=== PATIENT | female | born 1945 | race Caucasian/White ===

== ENCOUNTER 2019-04-06 18:31 | Inpatient (IN) ==
--- NOTE | 2019-04-06 18:49 | PROVIDER DOCUMENTATION ---
HPI-General Adult - General Stated Complaint: AMS Time Seen by Provider: 04/06/19 18:37 Source: patient, EMS, custodial records Allergies/Adverse Reactions: Patient Allergies Allergy/AdvReac Type Severity Reaction Status Date / Time No Known Allergies Allergy Verified 09/26/17 09:16 Home Medications: Home Medication List Medication Instructions Recorded Confirmed Last Taken Type Acetaminophen [Tylenol] 2 tab PO Q4H PRN 09/26/17 09/26/17 Unknown History Calcium Carbonate/Vitamin D3 1 each PO QHS 09/26/17 04/06/19 04/05/19 21:00 History [Calcium 600 + Vit D 400 Tablet] Lamotrigine [Lamictal] 25 mg PO QHS 09/26/17 04/06/19 04/05/19 21:00 History Quetiapine [Seroquel] 50 mg PO BID 09/26/17 04/06/19 04/05/19 21:00 History Ranitidine HCl [Zantac] 150 mg PO QAM 09/26/17 04/06/19 04/06/19 06:00 History Sennosides/Docusate Sodium [Senna 1 each PO BID 09/26/17 04/06/19 04/06/19 09:00 History S Tablet] Topiramate [Topamax] 100 mg PO QHS 09/26/17 04/06/19 04/05/19 21:00 History Amlodipine Besylate 5 mg PO DAILY 04/06/19 04/06/19 04/06/19 09:00 History Aripiprazole [Abilify] 2 mg PO QHS 04/06/19 04/06/19 04/05/19 21:00 History Carvedilol 3.125 mg PO BID 04/06/19 04/06/19 04/06/19 09:00 History Cyanocobalamin (Vitamin B-12) 1,000 mcg IJ DIRECTED 04/06/19 04/06/19 04/02/19 09:00 History [Cyanocobalamin Injection] Divalproex [Depakote] 250 mg PO BID 04/06/19 04/06/19 04/06/19 12:00 History Duloxetine [Cymbalta] 30 mg PO QHS 04/06/19 04/06/19 04/05/19 21:00 History Furosemide [Lasix] 20 mg PO DAILY 04/06/19 04/06/19 04/06/19 09:00 History Metformin [Glucophage] 500 mg PO DAILY 04/06/19 04/06/19 04/06/19 09:00 History Mirabegron E.r. [Myrbetriq E.r] 50 mg PO DAILY 04/06/19 04/06/19 04/06/19 09:00 History Mirtazapine 15 mg PO QHS 04/06/19 04/06/19 04/05/19 21:00 History Rosuvastatin Calcium [Crestor] 5 mg PO QHS 04/06/19 04/06/19 04/05/19 21:00 History - History of Present Illness -Gen Adult Nature of Presenting Problems: 73 YOF PRESENTS FROM [facility] FOR AMS, STAFF REPORTS SHE WAS ANGRY AND YELLING. THE PATIENT DENIES COMPLAINTS. SHE IS CONFUSED TO TIME, PLACE AND SITUATION BUT ORIENTED TO PERSON. SHE IS ALERT IN NAD. Location of Pain/Injury: reports: none Pain Radiation: reports: no radiation Quality of Pain: reports: none Severity: reports: moderate Onset/Duration: reports: unsure Timing: reports: still present Context/Activities at Onset: reports: none Modifying Factors: improves with: nothing Associated Symptoms: reports: denies symptoms Review of Systems - Adult - REVIEW OF SYSTEMS - ADULT Constitutional: reports: no symptoms reported. denies: see HPI, chills, fever, fatique, night sweats, weight gain, weight loss, other Eyes: reports: other (BLIND IN R EYE). denies: no symptoms reported, see HPI, discharge, dry eyes, decreased vision, blurred vision, double vision, eye pain, redness Ears, Nose, Mouth & Throat: reports: no symptoms reported. denies: see HPI, ear discharge, ear pain, hearing loss, tinnitus, epistaxis, sinus problem, nose pain, loose teeth, mouth/dental pain, mouth swelling, hoarseness, throat pain, throat swelling, other Cardiovascular: reports: no symptoms reported. denies: see HPI, chest pain, edema, heart murmur, irregular heart rate, orthopnea, palpitations, poor circulation, PND, syncope, other Respiratory: reports: no symptoms reported. denies: see HPI, chronic cough, cough, dyspnea on exertion, excessive sputum production, hemoptysis, pleurisy, shortness of breath, wheezing, other Gastrointestinal: reports: no symptoms reported. denies: see HPI, abdominal pain, hematemesis, constipation, diarrhea, difficulty swallowing, frequent heartburn, nausea, poor appetite, rectal bleeding, vomiting, other Genitourinary: reports: no symptoms reported. denies: see HPI, dysuria, discharge, frequency, flank pain, frequent UTI's, hematuria, hesitency, incontinence, urinary retention, urgency, other Musculoskeletal: reports: no symptoms reported. denies: see HPI, bone pain, back pain, frequent leg cramps, joint pain, joint swelling, muscle aches, muscle weakness, neck pain, other Integumentary: reports: no symptoms reported. denies: see HPI, hives, hair loss, itching, mole changes, nail changes, rash, skin sores/ulcer, skin thickening, other Neurological: reports: see HPI. denies: no symptoms reported, ataxia, dizziness/vertigo, headache/migraines, loss of balance, numbness, paresthesia, seizure, slurred speech, syncope, tremors, other Psychiatric: reports: no symptoms reported. denies: see HPI, anxiety, anti- depressant use, alcohol/drug dependence, depression, emotional problems, insomnia, panic attacks, suicidal thoughts, other Endocrine: reports: no symptoms reported. denies: see HPI, change in skin pigment, excessive sweating, goiter, cold intolerance, heat intolerance, increased hunger, increased thirst, polyuria, other Hematologic/Lymphatic: reports: no symptoms reported. denies: see HPI, blood clots, easy bruising, low blood count, lymphedema, prolonged bleeding, swollen lymph nodes, transfusions, other Allergic/Immunologic: reports: no symptoms reported. denies: see HPI, allergic reactions, allergic rhinitis, asthma, eczema, food allergy, frequent infections, hay fever, hives, positive PPD, urticaria, other Past History - Adult - PAST MEDICAL HISTORY-ADULT Review of Records: reports: Nursing Assessment Review, Social history reviewed & non-contributory. Physical Exam-General - PHYSICAL EXAM-ADULT Initial Vital Signs Reviewed: Yes - CONSTITUTIONAL General Appearance: appears well, alert, no apparent distress - EYES Eyes: pink conjunctivae, other (R EYE CLOUDED, BLINDNESS) - HEAD, EARS, NOSE, MOUTH & THROAT HENMT: normocephalic/atraumatic, moist mucous membranes, other (R EYE HYPERTROPHIED, CLOUDY WITH ZERO VISION) - NECK Neck: non-tender, full range of motion, supple - RESPIRATORY Respiratory: chest non-tender, lungs clear, normal breath sounds, no pleuratic chest pain, no respiratory distress, no accessory muscle use - CARDIOVASCULAR Cardiovascular: normal peripheral pulses, regular rate, rhythm, no edema, no gallop, no JVD, no murmur, JVD - GASTROINTESTINAL (ABDOMEN) Abdominal Exam: normal bowel sounds, non tender, soft - LYMPHATIC Lymphatic: no adenopathy - MUSCULOSKELETAL Back Exam: normal inspection, no CVA tenderness, no vertebral tenderness Extremity: normal range of motion, non-tender, normal gait, normal inspection - SKIN Integumentary: normal color, warm/dry, other (PEELING SKIN ON FACE) - NEUROLOGIC Neurologic: grossly normal. negative: facial droop, focal weakness, sensory deficit - PSYCHIATRIC Psych/Mental Status: normal mood/affect. negative: normal thought content, normal thought process, oriented x 3 Progress - PLAN OF CARE/RESULTS Progress/Plan/Lab Results: Vital Signs - 8 hr 04/06/19 18:37 Temperature 98.1 F Pulse Rate 78 Respiratory Rate 20 Blood Pressure 164/91 O2 Sat by Pulse Oximetry 98 Orders Category Date Time Status Saline Loc NOW Care 04/06/19 18:[address] HEAD W/O CONTRAST [CT] Stat Exams 04/06/19 18:43 Ordered CBC WITH ELECTRONIC DIFF [HEME] Stat Lab 04/06/19 18:41 Uncollected COMPREHENSIVE METABOLIC PANEL [CHEM] Stat Lab 04/06/19 18:42 Uncollected PROTIME WITH INR [COAG] Stat Lab 04/06/19 18:42 Uncollected PTT [COAG] Stat Lab 04/06/19 18:42 Uncollected UA NIMS W/REFLEX CULT [URINALYSIS] Stat Lab 04/06/19 18:42 Uncollected EKG [EKG] Stat Ther 04/06/19 18:42 Ordered Result Diagrams: 04/06/19 19:18 04/06/19 19:18 - CT/MRI 1 CT Study: Head Impression: See EMR Report (EXAM: CT HEAD W/O CONTRAST INDICATION: AMS TECHNIQUE: This exam was performed using automated exposure control, adjustment of mA or kV according to patient size, and/or use of iterative reconstruction technique. COMPARISON: None. FINDINGS: There is mild patchy low attenuation in the periventricular white matter suggesting mild microangiopathy. There is no definite acute infarct given the limited sensitivity of CT versus MRI. There is no discrete intracranial mass, mass effect, or intracranial hemorrhage. The surrounding soft tissues and bony structures are essentially unremarkable. IMPRESSION: Mild chronic appearing changes but no definite acute intracranial pathology by CT. Electronically signed by Shaheen Parham 04/06/2019 7:26 PM 09/23 Interpreting Physician: Shaheen Parham MD Dictated Date/Time: 04/06/191925 cc: Melinda Meyers; Shaheen Peguero III, MD) - CONSULTS/PCP/HOSPITALIST Notification #1 *Consult/PCP/Hospitalist*: DR TRUONG PAGED AT 2019 Departure - Departure Date of Disposition Decision: 04/06/19 Time of Disposition Decision: 20:22 DIAGNOSIS: UTI (urinary tract infection) Disposition: ADMITTED INPATIENT 09 Certified Medical Emergency: Emergent Condition: Stable - Critical Care Note This patient required my direct & personal management of CC.: No Attestation - Physician/ JORGE Attestation Patient care was provided by Advanced Practice Provider:: Yes Advanced Practice Provider:: Melinda Meyers Advanced Practice Provider documentation review:: The Mid-level provider documentation, treatment plan and medical decision making was reviewed by the physician who agrees with all treatment and medical decision making by the [facility]. The physician spent face to face time with patient:: No Advanced Practice Provider documentation review:: Supervising physician onsite and consulted in the evaluation and care of this patient. The physician did not have a face to face encounter with the patient.
[2019-04-06 19:28] LABS: BASO# 0.04 X1000 (0.0-0.2); BASO% 0.5 % (0.0-0.8); EOS# 0.31 X1000 (0.0-0.7); EOS% 3.8 % (0.0-10.0); HEMATOCRIT 38.4 % (37.0-47.0); LYMPH# 2.56 X1000 (1.2-3.4); LYMPH% 31.5 % (20.5-51.1); MCH 27.4 PG (27-31); MCHC 33.9 g/dL (33-37); MCV 80.8 FL (81-99); MONO# 0.63 X1000 (0.11-0.59); MONO% 7.8 % (1.7-9.3); MPV 10.2 FL (7.4-10.4); NEUT# 4.58 X1000 (1.4-6.5); NEUT% 56.4 % (42.2-75.2); PLT 270 X1000 (130-400); RBC 4.75 XMIL (4.2-5.4); RDW 15.5 % (11.5-14.5); WBC 8.12 X1000 (4.8-10.8)
--- NOTE | 2019-04-06 19:29 | Diag Imaging Result Doc PS360 ---
EXAM: CT HEAD W/O CONTRAST INDICATION: AMS TECHNIQUE: This exam was performed using automated exposure control, adjustment of mA or kV according to patient size, and/or use of iterative reconstruction technique. COMPARISON: None. FINDINGS: There is mild patchy low attenuation in the periventricular white matter suggesting mild microangiopathy. There is no definite acute infarct given the limited sensitivity of CT versus MRI. There is no discrete intracranial mass, mass effect, or intracranial hemorrhage. The surrounding soft tissues and bony structures are essentially unremarkable. IMPRESSION: Mild chronic appearing changes but no definite acute intracranial pathology by CT. Electronically signed by Shaheen Parham 04/06/2019 7:26 PM
[2019-04-06 19:35] LABS: INR 1.11; PROTIME 14.4 Seconds (11.0-16.0)
[2019-04-06 19:36] LABS: PTT 48.7 Seconds (22.3-41.8)
[2019-04-06 19:51] LABS: ALB/GLOB RATIO 1.2; CALCIUM 9.6 mg/dL (8.8-10.2); CREATININE 1.8 mg/dL (0.5-0.9); TOTAL BILIRUBIN 0.27 mg/dL (0.20-1.00); TOTAL PROTEIN 7.4 g/dL (6.3-8.3)
[2019-04-06 20:02] LABS: URINE SOURCE CATH
[2019-04-06 20:07] LABS: BILIRUBIN URINE NEGATIVE (NEGATIVE); BLOOD URINE MODERATE (NEGATIVE); CLARITY CLEAR (CLEAR); COLOR YELLOW; GLUCOSE URINE NEGATIVE (NEGATIVE); KETONE URINE TRACE mg/dL (NEGATIVE); LEUKOCYTES URINE MODERATE (NEGATIVE); NITRITE URINE POSITIVE (NEGATIVE); PROTEIN URINE 100 mg/dL (NEGATIVE); SP GRAVITY URINE 1.025; UROBILINOGEN URINE 0.2 EU/dL (0.2-1.0)
[2019-04-06 20:08] LABS: URINE WBC TNTC /HPF (<10)
[2019-04-06 20:10] LABS: URINE BACTERIA 1+ /HFP; URINE EPITHELIAL CELLS <10 /HPF (<10)
[2019-04-06 20:13] LABS: URINE SMALL ROUND CELLS RENAL PRESENT; URINE YEAST PRESENT /HPF
[2019-04-06] MEDS ORDERED: ROCEPHIN 1 GM in NS 50 ML IV ONE (20:15)
[2019-04-06] MEDS ORDERED: ZOFRAN IV PRN (21:52)
[2019-04-06] MEDS ORDERED: TYLENOL PO PRN (21:52)
--- NOTE | 2019-04-06 21:54 | HISTORY AND PHYSICAL ---
PRIMARY CARE PROVIDER: She has none. Shaheen Peguero III I believe. She is a patient of [facility]. REASON FOR ADMISSION: Acute confusion and combativeness today. HISTORY OF PRESENT ILLNESS: Ms. Lolita Jacome 73-year-old woman past medical history of type 2 diabetes, atrial fibrillation, hypertension, epilepsy, depression with psychiatric manifestations. She was brought in today from the detention because she became very aggressive and combative and more confused than usual. She does have a history of underlying dementia per the ER staff. I spoke to the patient. She says she does not know why she is in the hospital but she said that she felt some was messing with her furniture at home and that really upset her. She says now she has to go and get new furniture as result of this. Asked her if she has seen people or voices she denies this. She denies any pain, any fever, any abdominal discomfort or GI or complaints. REVIEW OF SYSTEM: Was totally normal. ALLERGIES: No known allergies. MEDICATIONS: Have not been reconciled. SURGICAL HISTORY: Has had a hysterectomy, cholecystectomy per the patient. FAMILY HISTORY: Patient denies any heart disease or diabetes. SOCIAL HISTORY: Does not smoke, drink, or use drugs. Currently lives in a detention. LAB WORK: White count 8000, hemoglobin and hematocrit 13 and 38, platelets 270,000 with normal differential. Sodium 135, BUN 21, creatinine 1.8. No baseline to compare, alkaline phosphatase 126, PT 14, INR 1.1, PTT 48.7. Urinalysis moderate blood, positive nitrate, too numerous to count WBC and 1+ bacteria with urine yeast. Head CT mild chronic appearing changes but no acute intracranial abnormalities noted. PHYSICAL EXAMINATION: Elderly woman who is not in acute distress. The blood pressure is 160/91, heart rate 78, respiratory rate 20, temperature is 98.1. Patient is alert and surprisingly oriented to person, place and time with normal mood and affect. Head is normocephalic, atraumatic. Eyes, left pupil is reactive to light, pupil and iris are completely opacified following head trauma many decades ago but EOMI. Is anicteric and not pale. ENT exam grossly normal. NECK: Short and thick. No JVD or carotid bruit, thyromegaly. CHEST: Clear when auscultated in both lung gordon. CARDIOVASCULAR: First, 2nd sounds heard. No gallops, murmurs, rub, rhythm is regular. ABDOMEN: Protuberant, soft, not tender. No mass, megaly, bowel sounds are normal. RECTAL: Deferred at this time. EXTREMITIES: Patient has good distal pulse, volume is regular, symmetrical. No edema, clubbing, cyanosis. NEURO: No focal deficits . SKIN: Patient has diffuse and xerosis of her skin otherwise good turgor, no overt breakdown lesions or erythema. MUSCULOSKELETAL: Grossly normal. ASSESSMENT: 1. At this time is acute kidney injury. 2. Urinary tract infection. 3. Dementia. 4. Mild encephalopathy secondary urinary tract infection and possible acute kidney injury . 5. Hypertension. 6. Epilepsy. 7. Clinical depression with behavioral manifestations. PLAN: Hydrate patient, treat patient empirically Rocephin pending urine cultures. I do not have the patient's active medication list is possible that her medications may or may not be playing a role in this acute confusion state. Only time will tell with appropriate hydration and treatment with the antibiotics will retrospectively be able to ascertain if her symptoms are due to hydration and infectious problems versus medications. Informed patient that she will be spending 2 days and she was not very happy about that. Avoid nephrotoxic medications. cc: Maurilio Fleming MD
[2019-04-06] MEDS: NS 1,000 ML IV SCH (22:16)
[2019-04-06] MEDS: LOVENOX SUBQ SCH (22:18)
[2019-04-07] MEDS: NS 1,000 ML IV SCH (05:10)
--- NOTE | 2019-04-07 06:58 | EKG Report ---
Test Performed on : 04/07/2019 05:35:20 AM Test Reason : Acute kidney injury Blood Pressure : / mmHG Vent. Rate : 076 BPM Atrial Rate : 076 BPM P-R Int : 244 ms QRS Dur : 120 ms QT Int : 418 ms P-R-T Axes : 074 -14 065 degrees QTc Int : 470 ms Undetermined rhythm (probably atrial fibrillation) with PVCs or aberrant conduction Nonspecific intraventricular conduction delay Nonspecific ST and T wave abnormality Abnormal ECG Confirmed by Chris LOBATO, Salvador Monahan ([id number]) on 04/08/2019 8:17:59 AM
[2019-04-07 07:37] LABS: BASO# 0.05 X1000 (0.0-0.2); BASO% 0.7 % (0.0-0.8); EOS# 0.35 X1000 (0.0-0.7); EOS% 4.9 % (0.0-10.0); HEMATOCRIT 34.8 % (37.0-47.0); HEMOGLOBIN 11.6 g/dL (12.0-16.0); IMM GRAN# 0.02 X1000 (0.0-0.04); IMM GRAN% 0.3 % (0.0-0.5); LYMPH# 2.78 X1000 (1.2-3.4); MCHC 33.3 g/dL (33-37); MCV 81.1 FL (81-99); MONO% 8.4 % (1.7-9.3); MPV 10.5 FL (7.4-10.4); NEUT# 3.32 X1000 (1.4-6.5); NEUT% 46.7 % (42.2-75.2); PLT 215 X1000 (130-400); RBC 4.29 XMIL (4.2-5.4); RDW 15.2 % (11.5-14.5); WBC 7.12 X1000 (4.8-10.8)
[2019-04-07 08:03] LABS: CALCIUM 8.6 mg/dL (8.8-10.2); CREATININE 1.5 mg/dL (0.5-0.9); MAGNESIUM 1.9 mg/dL (1.5-2.7); POTASSIUM 3.1 mmol/L (3.5-5.1)
[2019-04-07] MEDS: KLOR-CON PO ONE ×2 (10:13→10:14)
[2019-04-07] MEDS: NS + KCL 20 MEQ 1,000 ML IV SCH ×2 (10:59→21:13)
--- NOTE | 2019-04-07 14:43 | PROGRESS NOTE ---
DATE: 04/07/2019 SUBJECTIVE: This patient is lying in bed. Apparently she has been agitated and combative on and off, but at the moment of her physical exam she was basically sleeping. I woke her up. She was able to say her name and follow commands, but she was really sleepy. OBJECTIVE: Vital Signs: Temperature 98.4, pulse 67, respiratory rate 16, blood pressure 166/65, oxygen saturation 99% on room air. HEENT: Head normocephalic, no trauma. PERRLA. Neck: Supple. No JVD. No masses. Central trachea. Chest: Clear to auscultation. No wheezing. No rales. Abdomen: Soft. Nontender. Nondistended. No hepatosplenomegaly. Some discomfort at the level of the suprapubic area. Extremities: No edema, no clubbing, no cyanosis. Neurological examination: This patient does not have any motor deficits. She is sleepy at this moment. She was able to say her name. Apparently she has been confused and combative on and off. LABORATORY: WBC 7.1, hemoglobin 11.6, hematocrit 24.8, platelets 215,000. Sodium 136, potassium 3.1, chloride 102, bicarbonate 22, BUN 17, creatinine 1.5, glucose 90, calcium 8.6, magnesium 1.9. ASSESSMENT AND PLAN: 1. Encephalopathy in a patient with possible dementia, probably infectious encephalopathy. She does have a urinary tract infection. I will continue with same management, she is on antibiotics. Urine culture showed gram-negative rods. 2. Possible acute kidney injury. I am not quite sure about her baseline. Her creatinine upon admission was 1.8 and now 1.5. I do not know if this is new or chronic. I do not have any previous records. 3. Urinary tract infection. As per #1. Continue with ceftriaxone. 4. Dementia. Aware. I will continue with some of her home medications. 5. Clinical depression with behavioral manifestations. I will continue with some of her home medications. I am not quite sure this confusion is also related to too much medications on board. 6. History of epilepsy. Aware. 7. Hypertension, stable. 8. Diabetes, stable. cc: Adrián Madrid MD
[2019-04-07] MEDS: ROCEPHIN 1 GM in NS 50 ML IV SCH (21:13)
[2019-04-07] MEDS: CALTRATE 600 + D PO SCH (21:14)
[2019-04-07] MEDS: PERICOLACE PO SCH (21:14)
[2019-04-07] MEDS: LAMICTAL PO SCH (21:14)
[2019-04-07] MEDS: LOVENOX SUBQ SCH (21:14)
[2019-04-07] MEDS: DEPAKOTE PO SCH (21:14)
[2019-04-07] MEDS: SEROQUEL PO SCH (21:30)
[2019-04-08] MEDS: NS + KCL 20 MEQ 1,000 ML IV SCH ×2 (06:26→16:41)
[2019-04-08 07:56] LABS: CALCIUM 8.6 mg/dL (8.8-10.2); CREATININE 1.3 mg/dL (0.5-0.9); MAGNESIUM 1.8 mg/dL (1.5-2.7); POTASSIUM 4.1 mmol/L (3.5-5.1)
[2019-04-08] MEDS ORDERED: APRESOLINE IV PRN (09:09)
--- NOTE | 2019-04-08 10:57 | PROGRESS NOTE ---
DATE: 04/08/2019 SUBJECTIVE: This patient is lying comfortably in bed. She has been refusing treatment. She has been combative on and off, I will request physical therapy. I will continue with the same management for now. We have a positive urine culture that showed gram-negative rods. Kidney function getting better. Initially, the creatinine was 1.8, now 1.5 and 1.3. ASSESSMENT AND PLAN: 1. Encephalopathy in a patient with possible dementia, likely infectious encephalopathy. She does have urinary tract infection. Urine culture showed gram-negative rods. Continue with same management. She is on antibiotics. 2. Kidney injury, I am not quite sure about her baseline. It looks like an acute issue. She was admitted with a creatinine 1.8, yesterday was 1.5, and today is 1.3. BUN trending down also. We will continue with the same management. 3. Hypokalemia resolved. 4. Urinary tract infection as per #1. 5. Dementia aware. I will continue with her home medications, but she has been refusing them. 6. Clinical depression with behavioral manifestation. Continue home medications, but she has been refusing those. I believe once she is less confused, she will start taking it. 7. History of epilepsy aware. 8. Hypertension stable. 9. Diabetes, stable. cc: Adrián Madrid MD
[2019-04-08] MEDS: COREG PO SCH (20:00)
[2019-04-08] MEDS: ROCEPHIN 1 GM in NS 50 ML IV SCH (20:00)
[2019-04-08] MEDS: DEPAKOTE PO SCH (20:01)
[2019-04-08] MEDS: PERICOLACE PO SCH (20:01)
[2019-04-08] MEDS: ZANTAC PO SCH (20:01)
[2019-04-08] MEDS: SEROQUEL PO SCH (20:01)
[2019-04-08] MEDS: NORVASC PO SCH (20:02)
[2019-04-09] MEDS: SEROQUEL PO SCH ×3 (00:05→19:56)
[2019-04-09] MEDS: COREG PO SCH ×3 (00:06→19:56)
[2019-04-09] MEDS: LAMICTAL PO SCH ×2 (00:06→19:56)
[2019-04-09] MEDS: ABILIFY PO SCH ×2 (00:06→19:57)
[2019-04-09] MEDS: REMERON PO SCH ×2 (00:06→19:56)
[2019-04-09] MEDS: CALTRATE 600 + D PO SCH ×2 (00:07→19:56)
[2019-04-09] MEDS: CYMBALTA PO SCH ×2 (05:51→19:56)
[2019-04-09] MEDS: LOVENOX SUBQ SCH (05:52)
[2019-04-09] MEDS: PERICOLACE PO SCH ×3 (05:52→19:56)
[2019-04-09] MEDS: NS + KCL 20 MEQ 1,000 ML IV SCH ×3 (07:15→18:28)
[2019-04-09 08:05] LABS: BASO# 0.03 X1000 (0.0-0.2); BASO% 0.5 % (0.0-0.8); EOS# 0.37 X1000 (0.0-0.7); EOS% 6.1 % (0.0-10.0); HEMATOCRIT 33.7 % (37.0-47.0); LYMPH# 2.01 X1000 (1.2-3.4); LYMPH% 33.2 % (20.5-51.1); MCHC 32.6 g/dL (33-37); MCV 82.6 FL (81-99); MONO# 0.56 X1000 (0.11-0.59); MONO% 9.3 % (1.7-9.3); MPV 9.9 FL (7.4-10.4); NEUT# 3.08 X1000 (1.4-6.5); NEUT% 50.9 % (42.2-75.2); PLT 186 X1000 (130-400); RBC 4.08 XMIL (4.2-5.4); RDW 15.6 % (11.5-14.5); WBC 6.05 X1000 (4.8-10.8)
[2019-04-09 08:22] LABS: CALCIUM 8.6 mg/dL (8.8-10.2); CREATININE 1.3 mg/dL (0.5-0.9); POTASSIUM 3.9 mmol/L (3.5-5.1)
[2019-04-09] MEDS: MYRBETRIQ E.R. PO SCH (09:49)
[2019-04-09] MEDS: NORVASC PO SCH (09:49)
[2019-04-09] MEDS: DEPAKOTE PO SCH ×2 (09:49→14:47)
[2019-04-09] MEDS: ZANTAC PO SCH (09:49)
--- NOTE | 2019-04-09 14:40 | Diag Imaging Result Doc PS360 ---
EXAM: BA SWALLOW W/VIDEO SPEECH THER 04/09/2019 HISTORY: dysphagia TECHNIQUE: Modified barium swallow, 163 images, one three mGy, 31 seconds fluoroscopy time. COMMENT: There is no evidence of aspiration. There is some cricopharyngeal achalasia. This is seen with liquid barium primarily. IMPRESSION: Mild cricopharyngeal achalasia. Electronically signed by Hawk Tillman 04/09/2019 2:38 PM
--- NOTE | 2019-04-09 18:25 | PROGRESS NOTE ---
DATE: 04/09/2019 SUBJECTIVE: The patient is resting comfortably in bed. She has been refusing treatment but today she started taking it back again. She has been combative on and off. Physical therapy has been requested. I will continue with same management. We have a positive culture that showed gram- negative rods in the urine. She has been placed on antibiotics. OBJECTIVE: Vital Signs: Temperature 97.6 degrees, pulse 70, respiratory rate 18, blood pressure 150/66, oxygen saturation 98 on room air. HEENT: Head normocephalic. No trauma. She has a lesion on the right eye which is chronic. PERRLA on the left. Neck: Supple. No JVD. Central trachea. Chest: Clear to auscultation. No wheezing. No rales. Abdomen: Soft, nontender, nondistended. No hepatosplenomegaly. Extremities: No edema. No clubbing. No cyanosis. Neurological: The patient is alert. She is oriented x1. She is able to say her date of . She is not oriented to place or date. LABORATORY: WBC 6, hemoglobin 11, hematocrit 37.7, platelet 186,000. Sodium 138, potassium 3.9, chloride 107, bicarbonate 21, BUN 9, creatinine 1.3, glucose 86, calcium 8.6. ASSESSMENT AND PLAN: 1. Encephalopathy in a patient with possible dementia, likely infectious encephalopathy. She does have an urinary tract infection. Urine culture showed gram-negative rods. Continue with the same management. She is on antibiotics. 2. Kidney injury. That could be acute on chronic but I do not have any previous results. Her creatinine has been stable compared with yesterday at 1.3. Upon admission it was 1.8. 3. Hypokalemia, resolved. 4. Urinary tract infection. As per #1, we have a positive urine culture that showed gram- negative rods. Continue with ceftriaxone. 5. Dementia. Aware. Continue home medication. 6. Clinical depression with behavioral manifestation which is probably chronic. She does not look depressed for me today nor yesterday. I believe she is less confused, but she is not oriented to time or place. I believe this is probably her baseline. 7. History of epilepsy. Aware. 8. Hypertension, stable. 9. Diabetes, stable. 10. There is some concern for dysphagia. I have requested a modified barium swallow to rule it out. The correction communicated with the nurse a couple days ago and they are concerned about this issue. We will try to rule this out. 11. This patient has been refusing treatment but today she started eating a little bit more and she took her morning medications. We will continue to monitor. I believe she is left confused but likely she has dementia. cc: Adrián Madrid MD
[2019-04-09] MEDS: ROCEPHIN 1 GM in NS 50 ML IV SCH (19:57)
[2019-04-10] MEDS: CALTRATE 600 + D PO SCH ×2 (01:25→20:07)
[2019-04-10] MEDS: ABILIFY PO SCH ×2 (01:25→20:07)
[2019-04-10] MEDS: CYMBALTA PO SCH ×2 (01:26→20:07)
[2019-04-10] MEDS: REMERON PO SCH ×2 (01:26→20:07)
[2019-04-10] MEDS: LAMICTAL PO SCH ×2 (01:26→20:07)
[2019-04-10] MEDS: PERICOLACE PO SCH ×3 (01:26→20:07)
[2019-04-10] MEDS: COREG PO SCH ×3 (01:26→20:07)
[2019-04-10] MEDS: SEROQUEL PO SCH ×3 (01:27→20:07)
[2019-04-10] MEDS: LOVENOX SUBQ SCH ×2 (01:27→22:18)
[2019-04-10] MEDS: NS + KCL 20 MEQ 1,000 ML IV SCH ×2 (04:17→20:23)
[2019-04-10 08:24] LABS: CALCIUM 8.8 mg/dL (8.8-10.2); CREATININE 1.1 mg/dL (0.5-0.9); POTASSIUM 4.3 mmol/L (3.5-5.1)
[2019-04-10] MEDS: NORVASC PO SCH ×2 (08:51→20:07)
[2019-04-10] MEDS: DEPAKOTE PO SCH ×2 (08:51→15:22)
[2019-04-10] MEDS: MYRBETRIQ E.R. PO SCH (08:52)
[2019-04-10] MEDS: ZANTAC PO SCH (08:53)
--- NOTE | 2019-04-10 09:33 | Diag Imaging Result Doc PS360 ---
CHEST-1 VIEW - 04/10/2019 INDICATION: pneumonia COMPARISON: None FINDINGS: The right hemidiaphragm is somewhat elevated. The lungs are clear. Heart size is normal. No pneumothorax or pleural effusion. IMPRESSION: Negative exam. Electronically signed by Antoine Joseph 04/10/2019 9:31 AM
[2019-04-10] MEDS: INVANZ 1 GM/NS 1 GM/50 ML IVPB IV SCH (10:03)
--- NOTE | 2019-04-10 12:28 | PROGRESS NOTE ---
DATE: 04/10/2019 SUBJECTIVE: The patient is resting comfortably in bed. She has been refusing taking her medications on and off. As per the patient, she is hungry today. Hopefully she can start eating. We did a modified barium swallow yesterday that showed mild cricopharyngeal achalasia, but there is no evidence of aspiration. She has been placed on a soft diet. We have a positive urine culture that showed ESBL E. coli urinary tract infection. Infectious Disease Department has been consulted and she has been placed on ertapenem. OBJECTIVE: Vital Signs: Temperature 98.7 degrees, pulse 68, respiratory rate 18, blood pressure 183/87, oxygen saturation 98 on room air. HEENT: Head normocephalic. No trauma. Left eye PERRLA. Neck: Supple. No JVD. No masses. Central trachea. Chest: Clear to auscultation. No wheezing. No rales. Abdomen: Soft, nontender, nondistended. No hepatosplenomegaly. Extremities: No edema. No clubbing. No cyanosis. Neurological: The patient is alert. She is oriented x1. She is able to say her date of . She is not oriented to place or date. LABORATORY: Sodium 138, potassium 4.3, chloride 108, bicarbonate 19, BUN 6, creatinine 1.1, glucose 93, calcium 8.8. ASSESSMENT AND PLAN: 1. Encephalopathy in a patient with possible dementia, likely infectious encephalopathy. She does have ESBL UTI due to E. coli. I have requested an evaluation by Infectious Disease Department and I have switched the treatment to ertapenem. 2. Kidney injury. It looks like this is an acute kidney problem. Her creatinine decreased to 1.1, initially it was 1.8. Urine output stable. 3. Hypokalemia, resolved. 4. Urinary tract infection due to extended spectrum beta-lactamase Escherichia coli. She will receive ertapenem. 5. Dementia, aware. Continue antibiotics. 6. Clinical depression with behavioral manifestation, which is probably chronic. She does not look depressed for me today. She seems to be less confused. She is following commands. 7. History of epilepsy, aware. 8. Hypertension. She has been hypertensive, but she has been refusing treatment on and off. 9. Diabetes, stable. 10. There was some concern for dysphagia, but her modified barium swallow did not show any aspiration, mild cricopharyngeal achalasia. 11. Generalized weakness and physical deconditioning. Continue physical therapy. cc: Adrián Madrid MD
--- NOTE | 2019-04-10 12:48 | Diag Imaging Result Doc PS360 ---
US RENAL 2 (RETROPER) COMPLETE - 04/10/2019 INDICATION: UTI TECHNIQUE: COMPARISON: None FINDINGS: The patient refused the exam. IMPRESSION: The patient refused the exam. Electronically signed by Antoine Joseph 04/10/2019 12:46 PM
[2019-04-10] MEDS: D5 1/2 NS 1,000 ML IV SCH (15:21)
--- NOTE | 2019-04-10 17:43 | INFECTIOUS DISEASE CONSULT REP ---
DATE: 04/10/2019 CONCLUSION: The patient was admitted to the hospital with an altered mental status. I think this is due to the patient's extended spectrum beta lactamase producing Escherichia coli urinary tract infection. If the patient did not have a chest x-ray, and if she had pneumonia, that could be responsible for the patient's altered mental status. RECOMMENDATIONS: I agree with switching the patient to ertapenem and to treat the extended spectrum beta lactamase producing Escherichia coli urinary tract infection. I have gone ahead and ordered a portable chest x-ray to try to exclude the possibility of pneumonia. I am going to order ultrasound of the patient's kidneys to make sure she does not have some obstruction or an abscess. She has a Gil catheter in, so I will not be able to determine if she has urinary retention or not. DISCUSSION: The patient is unable to give a history. The information I got was from the computer. She came to the hospital because she had an altered mental status. Her CBC showed a white count of 6050, hemoglobin 11 and a platelet count of a 186,000. Creatinine is 1.1. GFR is 49. Liver function studies are normal except for an alkaline phosphatase of 126. Urine culture grew an extended spectrum beta lactamase producing Escherichia coli. CT scan of the head showed no acute disease. A barium swallow showed mild achalasia. Patient's review of systems unable to be obtained. DRUG ALLERGIES: None listed. MEDICATIONS: The patient takes amlodipine, Abilify, carvedilol, Depakote, Cymbalta, Lasix, Lamictal, Glucophage, Myrbetriq, mirtazapine, Seroquel Zantac, Crestor and Topamax. SURGICAL HISTORY: Positive for hysterectomy and cholecystectomy. FAMILY HISTORY: No history of heart disease or diabetes. SOCIAL HISTORY: The patient lives in a senior living. She does not smoke cigarettes, drink alcoholic beverages or use drugs. PHYSICAL EXAMINATION: Vital Signs: Temperature is 98.7 degrees, pulse 68, respirations 18, blood pressure 183/87. The patient weighs 187 pounds. General: This is an obese, chronically ill- appearing elderly female. She is in no acute distress. Head, eyes, ears, nose and throat: The patient's right eye is closed. There is no drainage from the nose or ears. I did not see any white coating on her tongue. Neck: No meningismus. Lungs: Clear to auscultation. Cardiovascular: Heart rate is irregular. Abdomen: Soft and nontender. Neurologic: The patient is awake, she was unable to answer my questions regarding her health. She did follow request to move her extremities. There is no tremor. Integument: No rash noted. Thank you for the consult. cc: Marquez Dang MD
[2019-04-11] MEDS: D5 1/2 NS 1,000 ML IV SCH ×3 (04:06→20:06)
[2019-04-11] MEDS: INVANZ 1 GM/NS 1 GM/50 ML IVPB IV SCH (08:43)
[2019-04-11] MEDS: DEPAKOTE PO SCH ×2 (08:44→12:35)
[2019-04-11] MEDS: MYRBETRIQ E.R. PO SCH (08:44)
[2019-04-11] MEDS: SEROQUEL PO SCH ×2 (08:44→20:06)
[2019-04-11] MEDS: NORVASC PO SCH ×2 (08:44→20:06)
[2019-04-11] MEDS: ZANTAC PO SCH (08:44)
[2019-04-11] MEDS: COREG PO SCH ×2 (08:44→20:05)
[2019-04-11] MEDS: PERICOLACE PO SCH ×2 (08:44→20:06)
[2019-04-11] MEDS: APRESOLINE PO SCH ×2 (12:35→17:50)
--- NOTE | 2019-04-11 14:39 | PROGRESS NOTE ---
DATE: 04/11/2019 SUBJECTIVE: The patient is lying comfortably in bed. She has been taking her medications now, she has been tolerating p.o. a little bit. We did a modified barium swallow 2 days ago that showed mild cricopharyngeal achalasia but there is no evidence of aspiration. She has been placed on a diet. We have a positive urine culture that showed ESBL E coli urinary tract infection Infectious Disease Department on board and this patient is getting ertapenem. OBJECTIVE: Vital Signs: Temperature 98.2 degrees, respiratory rate 21, blood pressure 186/90, oxygen saturation 98 on room air. HEENT: Head normocephalic, no trauma, left eye PERRLA. Neck: Supple. No JVD. No masses. Central trachea. Chest: Clear to auscultation. No wheezing. No rales. Abdomen: Soft. No hepatosplenomegaly. Extremities: No edema, no clubbing, no cyanosis. Neurological: The patient is sleepy but arousable, she is oriented x1. She is able to say her date of . She is not oriented to person or place. She has a baseline dementia. LABORATORY: No lab work done today. ASSESSMENT AND PLAN: 1. Encephalopathy in a patient with dementia, likely infectious encephalopathy. She does have a urinary tract infection due to extended spectrum beta-lactamase Escherichia coli. Infectious Disease Department on board, continue antibiotics. 2. Kidney injury, it looks like is an acute kidney problem. Her creatinine decreased to 1.1 yesterday. I will recheck her creatinine tomorrow. 3. Hypokalemia resolved. 4. Urinary tract infection due to extended spectrum beta-lactamase Escherichia coli, continue with ertapenem. 5. Dementia aware. 6. Clinical depression with behavioral manifestation which is probably chronic. She does not look depressed for me today. 7. History of epilepsy aware. 8. Hypertension. I will add hydralazine to her medications, her blood pressure has been elevated. 9. Type 2 diabetes, stable. 10. There was some concern for dysphagia but we did a modified barium swallow that did not show any aspiration, mild cricopharyngeal achalasia. 11. Generalized weakness and physical deconditioning. Continue physical therapy. cc: Adrián Madrid MD [facility]
--- NOTE | 2019-04-11 18:54 | Diag Imaging Result Doc PS360 ---
US RENAL 2 (RETROPER) COMPLETE - 04/11/2019 INDICATION: UTI TECHNIQUE: COMPARISON: None FINDINGS: The kidneys are severely hyper echogenic. There is a left renal cyst measuring 2.6 x 2.4 cm. There is no hydronephrosis or mass. Renal sizes are grossly normal. The right kidney measures 10.2 x 4.6 x 5.5 cm. The left kidney measures 11.6 x 5.8 x 5.3 cm. Urinary bladder is grossly normal. IMPRESSION: Significant hyper echogenic kidneys compatible with chronic medical renal disease. Benign left renal cyst. Electronically signed by Antoine Joseph 04/11/2019 6:51 PM
[2019-04-11] MEDS: ABILIFY PO SCH (20:04)
[2019-04-11] MEDS: CYMBALTA PO SCH (20:05)
[2019-04-11] MEDS: CALTRATE 600 + D PO SCH (20:05)
[2019-04-11] MEDS: LAMICTAL PO SCH (20:05)
[2019-04-11] MEDS: REMERON PO SCH (20:06)
[2019-04-11] MEDS: LOVENOX SUBQ SCH (20:06)
[2019-04-12] MEDS: D5 1/2 NS 1,000 ML IV SCH ×2 (04:55→17:24)
[2019-04-12 07:37] LABS: CALCIUM 8.9 mg/dL (8.8-10.2); CREATININE 1.2 mg/dL (0.5-0.9); POTASSIUM 3.8 mmol/L (3.5-5.1)
[2019-04-12] MEDS: DEPAKOTE PO SCH ×2 (08:20→12:47)
[2019-04-12] MEDS: MYRBETRIQ E.R. PO SCH (08:20)
[2019-04-12] MEDS: INVANZ 1 GM/NS 1 GM/50 ML IVPB IV SCH (08:20)
[2019-04-12] MEDS: NORVASC PO SCH ×2 (08:20→20:46)
[2019-04-12] MEDS: PERICOLACE PO SCH ×2 (08:20→20:45)
[2019-04-12] MEDS: APRESOLINE PO SCH ×3 (08:21→17:22)
[2019-04-12] MEDS: COREG PO SCH ×2 (08:21→20:53)
[2019-04-12] MEDS: ZANTAC PO SCH (08:21)
[2019-04-12] MEDS: SEROQUEL PO SCH ×2 (08:21→20:45)
--- NOTE | 2019-04-12 10:29 | PROGRESS NOTE ---
DATE: 04/12/2019 SUBJECTIVE: This patient is lying comfortably in bed. She has been taking her medications. She has been tolerating p.o. We did a modified barium swallow 3 days ago that showed mild cricopharyngeal achalasia but there is no evidence of aspiration. She has been placed on a diet already. She has a positive culture that showed ESBL E. coli. Infectious disease department on board. Probably, she will need to get a PICC line and go back to her senior living but I will wait for the final infectious disease department recommendations. OBJECTIVE: Vital Signs: Temperature 98.4 degrees, pulse 77, respiratory rate 16, blood pressure 160/103, oxygen saturation 98 on room air. HEENT: Head normocephalic. No trauma. PERRLA. Neck: Supple. No JVD. No masses. Central trachea. Chest: Clear to auscultation. No wheezing. No rales. Abdomen: Soft. No hepatosplenomegaly. Extremities: No edema, no clubbing, no cyanosis. Neurological Examination: This patient is awake. She is alert. She is oriented x1 but otherwise she is disoriented. She does have a baseline dementia. Laboratory: Sodium 140, potassium 3.8, chloride 107, bicarbonate 20, BUN 5, creatinine 1.2, glucose 102, calcium 8.9. ASSESSMENT AND PLAN: 1. Encephalopathy in a patient with dementia, likely infectious encephalopathy. She does have a urinary tract infection due to extended-spectrum B-lactamase and is being treated with ertapenem. Infectious disease department on board. 2. Kidney injury. It looks like acute on chronic kidney disease. Her creatinine is down to 1.2. We will continue to monitor. 3. Hypokalemia, resolved. 4. Urinary tract infection due to extended-spectrum B-lactamase. Continue with ertapenem. Infectious disease on board. 5. Dementia. Aware. 6. History of depression with behavioral manifestations which is probably chronic but she does not look depressed for me today. 7. History of epilepsy. Aware. She is to continue with home medication. 8. Hypertension. I added hydralazine to her medication since her blood pressure has been elevated. 9. Type 2 diabetes, stable. 10. There was some concern for dysphagia but we did a modified barium swallow that did not show any aspiration, just mild cricopharyngeal achalasia. 11. Generalized weakness and physical deconditioning. Continue physical therapy. 12. This patient is doing better. I do believe this is her baseline now. Continue with ertapenem. I will wait for the final recommendations of infectious disease department. Probably, this patient can be discharged tomorrow back to the senior living. Probably, she will need a peripherally inserted central catheter line as well but, again, I will wait for infectious disease department. She is tolerating oral and taking her medications. cc: Adrián Madrid MD
[2019-04-12] MEDS: MIRALAX PO SCH (12:46)
[2019-04-12] MEDS: LASIX PO SCH (12:47)
[2019-04-12] MEDS: CALTRATE 600 + D PO SCH (20:45)
[2019-04-12] MEDS: CYMBALTA PO SCH (20:45)
[2019-04-12] MEDS: REMERON PO SCH (20:45)
[2019-04-12] MEDS: ABILIFY PO SCH (20:46)
[2019-04-12] MEDS: LAMICTAL PO SCH (20:46)
[2019-04-12] MEDS: LOVENOX SUBQ SCH ×2 (20:50→22:30)
[2019-04-12] MEDS ORDERED: TOPAMAX PO SCH (21:00)
[2019-04-12] MEDS ORDERED: CRESTOR PO SCH (21:00)
[2019-04-13 06:38] LABS: BASO# 0.03 X1000 (0.0-0.2); BASO% 0.5 % (0.0-0.8); EOS# 0.38 X1000 (0.0-0.7); EOS% 5.8 % (0.0-10.0); HEMATOCRIT 38.7 % (37.0-47.0); HEMOGLOBIN 12.8 g/dL (12.0-16.0); LYMPH# 2.46 X1000 (1.2-3.4); LYMPH% 37.3 % (20.5-51.1); MCH 27.8 PG (27-31); MCHC 33.1 g/dL (33-37); MCV 83.9 FL (81-99); MONO# 0.59 X1000 (0.11-0.59); NEUT# 3.13 X1000 (1.4-6.5); NEUT% 47.4 % (42.2-75.2); PLT 193 X1000 (130-400); RBC 4.61 XMIL (4.2-5.4); WBC 6.59 X1000 (4.8-10.8)
[2019-04-13 06:43] LABS: INR 1.18; PROTIME 15.2 Seconds (11.0-16.0)
[2019-04-13 06:44] LABS: PTT 39.1 Seconds (22.3-41.8)
[2019-04-13 06:53] LABS: CALCIUM 9.3 mg/dL (8.8-10.2); CREATININE 1.1 mg/dL (0.5-0.9); POTASSIUM 3.6 mmol/L (3.5-5.1)
[2019-04-13 07:54] LABS: INR 1.11; PROTIME 14.4 Seconds (11.0-16.0)
--- NOTE | 2019-04-13 08:08 | INFECTIOUS DISEASE PROGRESS NO ---
DATE: 04/13/2019 PRESENT ILLNESS: The patient has an extended spectrum beta lactamase producing E. coli urinary tract infection which is symptomatic. RECOMMENDATIONS: The patient was started on ertapenem yesterday. The patient is out of IV access, and I have gone ahead and ordered that a PICC be placed. MEDICATIONS: The patient is receiving ertapenem 1 g IV every 24 hours. PHYSICAL EXAMINATION: Vital Signs: Temperature is 97.7 degrees, pulse 61, respirations 14, blood pressure is 161/61. General: This is an obese, elderly female. She is in no acute distress. Head, eyes, ears, nose and throat: The patient's right eye is closed. She can see near objects. She can hear my spoken words. I did not see any white coating on her tongue. Neck: No pain with movement. Lungs: Clear to auscultation. Cardiovascular: Heart rate is irregular. Abdomen: Soft and nontender. Neurologic: The patient is awake. She can move her extremities. There is no tremor. LAB AND X-RAY STUDIES: Renal ultrasound showed hyperechogenic kidneys compatible with medical renal disease. Her CBC is pending. There is no BMP for today. Urine culture grew an extended spectrum beta lactamase producing E. coli. ASSESSMENT AND PLAN: The patient has Escherichia coli urinary tract infection. The plan is to treat her with 14 days' worth of ertapenem. She is out of peripheral IV access. I have ordered that a PICC be placed. COMORBIDITIES: She is elderly. She has diabetes mellitus. cc: Marquez Dang MD
[2019-04-13] MEDS: INVANZ 1 GM/NS 1 GM/50 ML IVPB IV SCH (08:29)
[2019-04-13] MEDS: MYRBETRIQ E.R. PO SCH (08:30)
[2019-04-13] MEDS: SEROQUEL PO SCH (08:30)
[2019-04-13] MEDS: PERICOLACE PO SCH (08:30)
[2019-04-13] MEDS: APRESOLINE PO SCH ×2 (08:30→12:20)
[2019-04-13] MEDS: NORVASC PO SCH (08:31)
[2019-04-13] MEDS: COREG PO SCH (08:31)
[2019-04-13] MEDS: LASIX PO SCH (08:31)
[2019-04-13] MEDS: DEPAKOTE PO SCH ×2 (08:31→12:20)
[2019-04-13] MEDS: MIRALAX PO SCH (08:31)
[2019-04-13] MEDS: ZANTAC PO SCH (08:31)
[2019-04-13] MEDS ORDERED: GLUCOPHAGE PO SCH (09:00)
[2019-04-13] MEDS ORDERED: NS 250 ML ONE (10:33)
--- NOTE | 2019-04-13 12:22 | PROGRESS NOTE ---
DATE: 04/13/2019 SUBJECTIVE: The patient had no major complaints. She is actually fairly pleasant. According to the nurse, though, she has kind of been a little bit aggressive this morning. OBJECTIVE: She did have a temperature of 100.2 degrees. Blood pressure is 123/86, heart rate is 74, respiratory rate is 16, temperature 98.3 degrees. Cardiovascular: Regular rate and rhythm. Pulmonary: Bilateral breath sounds clear to auscultation. GI: Soft, nontender, nondistended. Bowel sounds were positive. Laboratory Data: Her white count is 6. Her INR is normal. Her creatinine is 1.1. ASSESSMENT AND PLAN: 1. Encephalopathy. She seems at baseline. Likely due to urinary tract infection as far as exacerbation. 2. Acute kidney injury. Creatinine is stable. We will continue to follow. 3. Extended-spectrum B-lactamase Escherichia coli urinary tract infection. It is sensitive to ertapenem so we will continue Invanz. Planning for 2 weeks total of treatments. Dr. Dang is following. Peripherally inserted central catheter line is going to be placed and she will complete her course as an outpatient. 4. Depression, is stable currently. DISPOSITION: She is able to go to a assisted when a bed is available. Unfortunately, since she is on isolation, that may not end up happening right now but we will continue to follow. cc: Adonis Brambila MD
--- NOTE | 2019-04-13 13:04 | DISCHARGE SUMMARY ---
ADMISSION DATE: 04/06/2019 DISCHARGE DATE: 04/13/2019 ADMISSION DIAGNOSES: 1. Acute kidney injury. 2. Urinary tract infection. 3. Dementia. 4. Mild encephalopathy secondary to a urinary tract infection and possible acute kidney injury. 5. Hypertension. 6. Epilepsy. 7. Clinical depression with behavioral manifestations. DISCHARGE DIAGNOSES: 1. Encephalopathy in a patient with dementia, likely infectious encephalopathy. 2. Acute kidney injury on chronic kidney disease, resolved. 3. Hypokalemia, resolved. 4. Urinary tract infection due to extended-spectrum B-lactamase positive Escherichia coli. 5. Dementia, stable. 6. History of depression with behavioral manifestations, chronic. 7. History of epilepsy. 8. Hypertension, controlled. 9. Diabetes mellitus type 2, stable. 10. Some concern for dysphagia. Modified barium swallow did not show aspiration, just mild cricopharyngeal achalasia. 11. Generalized weakness and physical deconditioning. CONSULTATIONS: Dr. Dang. SURGERIES AND PROCEDURES: Modified barium swallow which was performed on the . It showed mild cricopharyngeal achalasia. HOSPITAL COURSE: Lolita Jacome is a 73-year-old female with a medical history of diabetes mellitus type 2, atrial fibrillation, hypertension, epilepsy, depression, dementia. [facility] because she was becoming very aggressive and combative, and more confused than usual. Was found to have a urinary tract infection that was ESBL positive E. coli. Dr. Dang was consulted. IV antibiotics were initiated. Empirically was initially started on Rocephin. Was found to have some acute kidney injury. Was given IV fluid hydration. Head CT was negative for any acute findings, though the worsening of the mental status was thought to be from acute kidney injury along with having infection of the urinary tract system. Had a PICC line placed while she was here. Kept on IV antibiotics. Dr. Dang was consulted on the . She was initiated on Invanz once the culture grew out ESBL positive E. coli. At one point in time, her potassium was a little low. That was treated. All of her comorbidities were managed per routine medications. There were no signs of seizures while she was here. Vital signs remained stable. She did have some fever, only once. She will go back to [facility] in [place] or it will be [facility]. DISCHARGE VITAL SIGNS: Temperature 98.3 degrees, heart rate 74, respiratory rate 16, blood pressure 123/86, O2 saturation 96% on room air. DISCHARGE LAB DATA: White blood cells 6000, hemoglobin 12, hematocrit 38, platelet count 193,000. INR is 1.11, PTT is 39.1. Sodium 136, potassium 3.6, BUN 4, creatinine is 1.1, glucose 103, calcium 9.3. Urinary culture, ESBL positive E. coli, resistant to ampicillin, cefazolin, cefepime, gentamicin, Levaquin, and Bactrim, and will be sent home with imipenem. PERTINENT IMAGING: Head CT on admission, mild chronic appearing changes but no definite acute findings. Chest x-ray on the 6th, negative exam. Renal ultrasound on the , apparently that exam was refused. There was a repeat on the . Significant hyperechogenic kidneys, compatible with chronic medical renal disease, and there is a benign left renal cyst. EKG reports undetermined rhythm. She has atrial fibrillation with PVCs. Rate was 76. DISCHARGE MEDICATIONS: 1. She was started on ertapenem or Invanz 1 g IV daily for at least 10 days. 2. Abilify 2 mg p.o. nightly. 3. Calcium with vitamin D 1 tablet p.o. every bedtime. 4. Crestor 5 mg p.o. nightly. 5. Cymbalta 30 mg p.o. nightly. 6. Lamictal 25 mg p.o. nightly. 7. Mirtazapine 15 mg p.o. nightly. 8. Topamax 100 mg p.o. nightly. 9. Amlodipine besylate 5 mg p.o. daily. 10. Coreg 3.125 mg p.o. twice a day. 11. Vitamin B12 1000 mcg once weekly on . 12. Depakote 250 mg p.o. twice daily. 13. Metformin 500 mg p.o. daily. 14. Lasix 20 mg p.o. daily. 15. Myrbetriq extended release 50 mg p.o. daily. 16. Senokot 1 tablet p.o. twice daily. 17. Seroquel 50 mg p.o. twice daily. 18. Zantac 150 mg p.o. daily. DISCHARGE DIET: GI soft. DISCHARGE ACTIVITY: As tolerated. DISCHARGE PHYSICIAN FOLLOWUPS: Dr. Peguero. DISCHARGE INSTRUCTIONS: Per facility but she will continue her IV antibiotic for 10 days per PICC line. PICC line care daily. DISCHARGE DISPOSITION: [facility] in [place] versus [facility]. Dictated by GERALD Hernandez for Adonis Brambila MD cc: GERALD Hernandez MD
[2019-04-13 13:51] VITALS: BP 141/56
== END 2019-04-13 15:21 | DRG 682 ==
LOC: SUPCPDRO → ED 18:31 → 1N 21:19 → SUATTDRO 21:19
PROVIDERS: ATTEND Internal Medicine